=== PATIENT | male | born 1940 | race Caucasian/White ===

== ENCOUNTER 2016-08-04 07:49 | Day surgery (SDC) | payer OTHER ==
[2016-08-04] MEDS ORDERED: TETRACAINE 0.5% OPHTH 1 DOSE AFFEYE ONE ×2 (08:16→09:10)
[2016-08-04] MEDS ORDERED: AK-DILATE 2.5% OPHTH 1 DOSE AFFEYE ONE (08:19)
[2016-08-04] MEDS ORDERED: MYDRIACIL OPHTH 1 DOSE AFFEYE ONE ×3 (08:19→08:27)
[2016-08-04] MEDS ORDERED: AK-DILATE 2.5% OPHTH 1 DOSE OP ONE ×2 (08:23→08:27)
[2016-08-04 11:29] VITALS: BP 142/88
== END 2016-08-04 09:29 | disposition home or self-care (01) ==
LOC: SURG1 07:49
PROVIDERS: ATTEND Ophthalmology
PROC: 085F3ZZ Destruction of Left Retina, Percutaneous Approach (ICD-10-PCS; principal; 2016-08-04 10:00)
DX: E11.3312 Type 2 diabetes mellitus with moderate nonproliferative diabetic retinopathy with macular edema, left eye (principal)